=== PATIENT | male | born 1980 | race Caucasian/White ===

== ENCOUNTER 2017-12-12 00:14 | Emergency (ER) | payer BC ==
[2017-12-12 01:02] VITALS: BP 136/84
== END 2017-12-12 01:02 | disposition home or self-care (01) ==
LOC: ED 00:14
DX: S91.202A Unspecified open wound of left great toe with damage to nail, initial encounter (principal); X58.XXXA Exposure to other specified factors, initial encounter; Y93.89 Activity, other specified; Y92.89 Other specified places as the place of occurrence of the external cause; Y99.8 Other external cause status; R03.0 Elevated blood-pressure reading, without diagnosis of hypertension